=== PATIENT | male | born 1940 | race Caucasian/White ===

== ENCOUNTER 2020-08-10 10:38 | Day surgery (SDC) | payer MEDICARE ==
[2020-08-10] MEDS ORDERED: NA CHLORIDE 0.9% 1,000 ML ONE ×2 (11:24→12:37)
[2020-08-10] MEDS ORDERED: CEFAZOLIN/SWI 1gm 2 GM/20 ML SYR ONE (11:24)
[2020-08-10] MEDS ORDERED: FENTANYL CITR 100 MCG/2 ML ONE (11:30)
[2020-08-10] MEDS ORDERED: LIDOCAINE 2% MPF 5 ML VIAL ONE (11:31)
[2020-08-10] MEDS ORDERED: propofoL 200 MG/20 ML VIAL IV ONE (11:31)
[2020-08-10] MEDS ORDERED: ROCURONIUM 50 MG/5 ML VIAL IV ONE (11:31)
[2020-08-10] MEDS ORDERED: BUPIVACAINE 0.25% PF 30 ML VIAL ONE (11:35)
[2020-08-10] MEDS ORDERED: BUPIVACAINE 0.25% PF 10 ML VIAL ONE (11:35)
[2020-08-10 11:51] LABS: Absolute Lymphocytes (CBC) 1.7 K/uL (0.7-4.9); Hematocrit 32.1 % (39.6-49.0); Lymphocytes % 23.3 % (15.3-44.8); MPV 7.1 fL (7.6-11.3); RBC Red Blood Cell Count 3.43 M/uL (4.33-5.43)
[2020-08-10 12:09] LABS: Potassium 4.3 mmol/L (3.5-5.1)
[2020-08-10] MEDS ORDERED: HEPARIN 500 UNIT/5 ML SYR IV ONE (12:37)
[2020-08-10] MEDS ORDERED: EPHEDRINE SULF 50 MG/ML VIAL ONE (12:55)
--- NOTE | 2020-08-10 13:13 | P.OP ---
Preoperative diagnosis: End Stage Renal Disease Postoperative diagnosis: End Stage Renal Disease Primary procedure: Laparoscopic Placement of Peritoneal Dialysis Catheter Secondary procedure: Laparoscopic Adhesiolysis Anesthesia: GETA + Local Estimated blood loss: <10cc Specimen: None Findings: intra-abdominal adhesion on LLQ Complications: None Implants: Serrato Double Cuffed Standard PD Catheter Transferred to: Recovery Room Condition: Good
[2020-08-10] MEDS ORDERED: NEOSTIGMINE 1 MG/ML -5 ML ONE (13:20)
[2020-08-10] MEDS ORDERED: GLYCOPYRROLATE 0.2 MG/ML SYR ONE (13:20)
[2020-08-10] MEDS ORDERED: ONDANSETRON 4 MG/2 ML VIAL ONE (13:50)
[2020-08-10] MEDS ORDERED: HYDROCODONE/APAP 7.5/325 MG TAB ONE (14:52)
[2020-08-10 15:13] VITALS: BP 153/70; TEMP 97.4; O2SAT 94
--- NOTE | 2020-08-10 20:30 | OP ---
Date of Procedure: 08/10/2020 Surgeon: Hudson Steven MD, Preoperative Diagnosis: End-stage renal disease. Postoperative Diagnosis: End-stage renal disease. Procedures Performed: 1.Laparoscopic placement of peritoneal dialysis catheter. 2.Laparoscopic adhesiolysis. Anesthesia: General endotracheal plus local with 0.25% Marcaine. Estimated Blood Loss: Less than 10 mL. Specimen: None. Findings: Intraabdominal adhesions in the left lower quadrant. Complications: None. Implants: Merit double-cuffed standard peritoneal dialysis catheter. Disposition: The patient was transferred to recovery room in good condition. Procedure In Detail: After informed consent was obtained, the patient was brought to the operating r oom, prepped and draped in the usual sterile fashion. After adequate anesthesia achieved, the area i n the left lower quadrant was anesthetized with 0.25% Marcaine and sharply incised. A 5 mm 0-degree optical trocar was introduced in the abdomen without evidence of complication. Insufflation obtained to 15 mmHg at this time. There was no injury to vital structures upon entry to the abdomen. Additi onal trocar site located left lower quadrant. This was similarly anesthetized and sharply incised. A 5 mm trocar was placed under direct visualization without evidence of complication. I then perform ed an adhesiolysis of the left lower quadrant as there were some scar tissue adhesions to the anterio r abdominal wall near the point of entry for the previously stenciled standard Merit peritoneal dialy sis catheter. After this was taken down using a combination of blunt and electrocautery, the skin wa s then excised over the left rectus muscle and incised sharply down through subcutaneous tissues and the introducer sheath was placed at this point. Sequential dilatation was performed and the standard Merit peritoneal dialysis catheter was placed into the pelvis without evidence of complication with first cuff being placed into the rectus muscle. At this point, I tunneled the tubing out through a p reviously stenciled exit site on the left abdominal wall at the subcutaneous position. At this point , air was emanated from the catheter and I instilled 1 L of saline through a power injector under dir ect visualization with good flow. I then dropped the bag on the floor and got back approximately 800 mL of peritoneal fluid back. At this point, I opted to end the procedure as everything was working quite well. I then packed the catheter with 400 units of heparin at this point and decompressed the abdomen without evidence of complication. All skin incisions were then copiously irrigated and close d with 4-0 Monocryl in a running fashion. Dermabond placed over top. The patient tolerated the proc edure well without evidence of complication and transferred to PACU in good condition. All counts we re correct at the end of the case. CHARMAINE/LATASHA Voice ID: [id number] Report ID: [id number]
== END 2020-08-10 15:23 | disposition home or self-care (01) ==
LOC: OR 10:38
PROVIDERS: ATTEND Surgery
PROC: 0WHG43Z Insertion of Infusion Device into Peritoneal Cavity, Percutaneous Endoscopic Approach (ICD-10-PCS; principal; 2020-08-10 11:30)
DX: I12.0 Hypertensive chronic kidney disease with stage 5 chronic kidney disease or end stage renal disease (principal); N18.6 End stage renal disease; Z20.822 Contact with and (suspected) exposure to COVID-19
CPT/HCPCS: 85025; 80048; 36415; 49324; U0003; J2704; J3010; J2710; J1642; J0690; J7030 ×2; J2405